=== PATIENT | male | born 1970 | race Asian ===

== ENCOUNTER 2017-07-29 10:53 | Observation (INO) | payer MEDICAID ==
[~2017-07-29] VITALS: Ht 162.6 cm; Wt 73.9 kg
[2017-07-29] VITALS (7 sets, daily range): BP systolic 111–159; BP diastolic 72–104
[~2017-07-29 10:53] MED LIST: ASPI-621 PO; ATOR-2 PO; HYDR12.53 PO; LISI-170 PO; SIMVASTATIN PO
[2017-07-29] MEDS ORDERED: hydrALAzine 20 MG/ML, 1ML ONE (11:21)
[2017-07-29] MEDS ORDERED: hydrALAzine 20 MG/ML, 1ML IV ONE (11:30)
[2017-07-29 11:46] LABS: INTERNATIONAL NORMALIZED RATIO 0.99 (0.93-1.1); PROTHROMBIN TIME 10.3 Seconds (9.6-11.5)
[2017-07-29 11:47] LABS: BASOPHILS # (AUTO) 0.02 x10^3/uL (0-0.1); BASOPHILS % (AUTO) 0 % (0-1); EOSINOPHILS # (AUTO) 0.11 x10^3/uL (0-0.4); EOSINOPHILS % (AUTO) 1 % (1-7); LYMPHOCYTES # (AUTO) 2.19 x10^3/uL (1-3.4); LYMPHOCYTES % (AUTO) 28 % (22-44); MD NO; MEAN CORPUSCULAR HEMOGLOBIN 31.4 pg (27.5-34.5); MEAN CORPUSCULAR HGB CONC 34.6 g/dL (33.2-36.2); MEAN CORPUSCULAR VOLUME 90.9 fL (81-97); MEAN PLATELET VOLUME 7.5 fL (7.4-10.4); MONOCYTES # (AUTO) 0.42 x10^3/uL (0.2-0.8); MONOCYTES % (AUTO) 5 % (2-9); NEUTROPHILS # (AUTO) 5.05 x10^3/uL (1.8-6.8); NEUTROPHILS % (AUTO) 65 % (42-75); PLATELET COUNT 252 x10^3/uL (130-400); RED CELL DISTRIBUTION WIDTH 12.4 % (9.4-14.8)
[2017-07-29] MEDS ORDERED: OMNIPAQUE 350 MG/ML, 100ML BOTTLE ONE (12:00)
[2017-07-29] MEDS ORDERED: PROMETHAZINE 25 MG/ML, 1ML IM PRN (15:00)
[2017-07-29] MEDS ORDERED: ONDANSETRON ODT 4 MG PO PRN (15:00)
[2017-07-29] MEDS ORDERED: LABETALOL 5MG/ML, 20ML IVPush PRN (15:00)
[2017-07-29] MEDS ORDERED: ENALAPRILAT 1.25 MG/ML, 2ML IVPush PRN ×2 (15:00)
[2017-07-29] MEDS ORDERED: ONDANSETRON 2MG/ML, 2ML IVPush PRN (15:00)
[2017-07-29] MEDS ORDERED: ASPIRIN 81 MG TABLET EC ONE (15:53)
[2017-07-29] MEDS: ATORVASTATIN 80 MG TABLET PO SCH ×2 (16:07→20:30)
[2017-07-29] MEDS ORDERED: ACETAMINOPHEN 325 MG TABLET PO PRN (17:30)
[2017-07-30 01:30] VITALS: BP 115/76
[2017-07-30] MEDS ORDERED: ASPIRIN 81 MG TABLET EC PO SCH ×3 (11:00→15:00)
[2017-07-30] MEDS ORDERED: LISINOPRIL 20 MG TABLET PO SCH (11:00)
[2017-07-30 12:42] VITALS: BP 149/62
== END 2017-07-30 12:35 | disposition home or self-care (01) ==
LOC: ED 11:21 → EDIP 13:48 → INTOOBSV 13:48 → 4WST 15:18
PROVIDERS: ADMIT Internal Medicine; ATTEND Internal Medicine
DX: G45.9 Transient cerebral ischemic attack, unspecified (principal); H93.19 Tinnitus, unspecified ear; I10 Essential (primary) hypertension; Z82.3 Family history of stroke; Z86.73 Personal history of transient ischemic attack (TIA), and cerebral infarction without residual deficits
CPT/HCPCS: 36415; 70450; 70496; 70551; 80047; 82962; 85025; 85610; 85730; 93005; 96374; 96375; 99285; G0378; J0360; Q9967